=== PATIENT | male | born 1960 | race American Indian/Alaskan Native ===

== ENCOUNTER 2022-02-12 14:57 | Emergency (ER) | payer SELFPAY ==
[2022-02-13] MEDS ORDERED: diphenhydrAMINE 25 MG CAP PO ONE (05:17)
[2022-02-13] MEDS ORDERED: predniSONE 20 MG TAB PO ONE (05:17)
[2022-02-13] MEDS ORDERED: valACYclovir 500 MG TAB PO ONE (05:17)
--- NOTE | 2022-02-13 05:37 | Emergency Department Report ---
ED General Adult HPI - General Chief complaint: Skin Rash Stated complaint: RASH/BREAK OUT Time Seen by Provider: 02/13/22 05:14 Source: patient Mode of arrival: Ambulatory Limitations: No Limitations - History of Present Illness Initial comments: Patient 61-year-old male who presents for circular rash over entire body. 3 weeks patient denies fevers or chills no nausea or vomiting. Primary complaint is itching and burning states initiated 3 weeks ago there is no prodromal fever patient denies suspicious contacts or travel. Patient denies weeping history of syphilis or HSV, patient is not HIV positive. Severity scale (0 -10): 5 - Related Data Previous Rx's Medication Instructions Recorded Last Taken Type Fluconazole [Diflucan TAB] 200 mg PO QDAY #1 tablet 02/13/22 Unknown Rx Mupirocin [Bactroban 2% OINT] 1 applic TP BID 7 Days #1 tube 02/13/22 Unknown Rx Terbinafine HCl [Antifungal 1% 1 applicatio TP BID 14 Days #1 tube 02/13/22 Unknown Rx CREAM] diphenhydrAMINE [Benadryl CAP] 25 mg PO Q6HR PRN #30 capsule 02/13/22 Unknown Rx predniSONE [Deltasone] 40 mg PO QDAY 5 Days #10 tab 02/13/22 Unknown Rx Allergies Allergy/AdvReac Type Severity Reaction Status Date / Time No Known Allergies Allergy Verified 02/12/22 17:17 ED Review of Systems ROS: Stated complaint: RASH/BREAK OUT Other details as noted in HPI Constitutional: denies: chills, fever Eyes: denies: eye pain, eye discharge, vision change ENT: denies: ear pain, throat pain Respiratory: no symptoms reported Cardiovascular: as per HPI Endocrine: no symptoms reported Gastrointestinal: denies: abdominal pain, nausea, diarrhea Genitourinary: denies: urgency, dysuria Musculoskeletal: denies: back pain, joint swelling, arthralgia Skin: other (Circular rash to face trunk bilateral arms and legs) Neurological: denies: headache, weakness, paresthesias Psychiatric: denies: anxiety, depression Hematological/Lymphatic: denies: easy bleeding, easy bruising ED Past Medical Hx - Medications Home Medications: Home Medications Medication Instructions Recorded Confirmed Last Taken Type Fluconazole [Diflucan TAB] 200 mg PO QDAY #1 tablet 02/13/22 Unknown Rx Mupirocin [Bactroban 2% OINT] 1 applic TP BID 7 Days #1 tube 02/13/22 Unknown Rx Terbinafine HCl [Antifungal 1% 1 applicatio TP BID 14 Days #1 tube 02/13/22 Unknown Rx CREAM] diphenhydrAMINE [Benadryl CAP] 25 mg PO Q6HR PRN #30 capsule 02/13/22 Unknown Rx predniSONE [Deltasone] 40 mg PO QDAY 5 Days #10 tab 02/13/22 Unknown Rx ED Physical Exam - General Limitations: No Limitations General appearance: alert, in no apparent distress - Head Head exam: Present: normocephalic, normal inspection - Eye Eye exam: Present: EOMI Pupils: Present: normal accommodation - ENT ENT exam: Present: normal orophraynx, mucous membranes moist - Neck Neck exam: Present: normal inspection, full ROM. Absent: tenderness, lymphadenopathy, thyromegaly - Respiratory Respiratory exam: Present: normal lung sounds bilaterally. Absent: respiratory distress, wheezes, stridor - Cardiovascular Cardiovascular Exam: Present: regular rate, normal rhythm, normal heart sounds. Absent: systolic murmur, diastolic murmur, rubs, gallop - GI/Abdominal GI/Abdominal exam: Present: soft, normal bowel sounds. Absent: distended, tenderness, bruit, hernia - Rectal Rectal exam: Present: deferred - Extremities Exam Extremities exam: Present: normal inspection, full ROM, normal capillary refill, other (Rash as above). Absent: pedal edema - Back Exam Back exam: Present: normal inspection, full ROM. Absent: CVA tenderness (R), CVA tenderness (L) - Neurological Exam Neurological exam: Present: alert, oriented X3, CN II-XII intact, normal gait - Expanded Neurological Exam Expanded Patient oriented to: Present: person, place, time Speech: Present: fluid speech Motor strength exam: RUE: 5, LUE: 5, RLE: 5, LLE: 5 Best Eye Response (Devante): (4) open spontaneously Best Motor Response (Noble): (6) obeys commands Best Verbal Response (Noble): (5) oriented Devante Total: 15 - Psychiatric Psychiatric exam: Present: normal affect, normal mood - Skin Skin exam: Present: dry, rash (Circular rash dry raised rough no weeping no f ever mild erythema not painful to touch), erythema, urticaria ED Course Vital Signs 02/12/22 17:15 Temperature 98.9 F Pulse Rate 100 H Respiratory 14 Rate Blood Pressure 202/117 [Right] O2 Sat by Pulse 98 Oximetry ED Medical Decision Making - Medical Decision Making Rashes consistent with tinea has been persistent for 3 weeks with multiple itch scratch cycles plan DC to home, short burst prednisone, Benadryl, Lamisil, mupirocin oint follow-up with dermatology call today to set up appointment. Follow-up with health department for HSV and syphilis screening patient verbalized agreement and understanding of discharge plan. Patient DC'd home in stable condition at this time. Critical care attestation.: If time is entered above; I have spent that time in minutes in the direct care of this critically ill patient, excluding procedure time. ED Disposition Clinical Impression: Dermatitis, Tinea Disposition: HOME / SELF CARE / HOMELESS Is pt being admited?: No Does the pt Need Aspirin: No Condition: Stable Instructions: Body Ringworm Additional Instructions: Take medication as prescribed, follow-up with insurance [employer] call today to set up appointment. Return to emergency should symptoms worsen. r Prescriptions: Terbinafine HCl [Antifungal 1% CREAM] 1 applicatio TP BID 14 Days #1 tube Mupirocin [Bactroban 2% OINT] 1 applic TP BID 7 Days #1 tube diphenhydrAMINE [Benadryl CAP] 25 mg PO Q6HR PRN #30 capsule PRN Reason: Itching predniSONE [Deltasone] 40 mg PO QDAY 5 Days #10 tab Fluconazole [Diflucan TAB] 200 mg PO QDAY #1 tablet Referrals: FROILAN TAY MD [Referring] - JUANCARLOS Forms: Work/School Release Form(ED) Time of Disposition: 05:54
[2022-02-13 06:31] VITALS: BP 181/99
== END 2022-02-13 06:31 | disposition home or self-care (01) ==
LOC: ED 14:57
DX: L30.9 Dermatitis, unspecified (principal); B35.9 Dermatophytosis, unspecified; Z79.899 Other long term (current) drug therapy
CPT/HCPCS: 99282